=== PATIENT | female | born 1995 | race Caucasian/White ===

== ENCOUNTER 2019-04-27 00:57 | Emergency (ER) | payer OTHER ==
[2019-04-27 01:28] VITALS: BP 114/88; PULSE 99; O2SAT 98
--- NOTE | 2019-04-27 01:29 | ERPHSYRPT ---
- History of Present Illness Time Seen by Provider: 04/27/19 01:24 Source: patient Exam Limitations: no limitations Physician History: This is a 23-year-old white female who states that she has a history of depression she is brought by the [employer] with complaint that the patient was [place] she apparently pulled into a closed store on interview with please she states that she was smoking marijuana and took a Xanax. Patient is brought here for intermediate clearance. She states that she is not having any medical problems other that she's had allergies. She states she is not drinking tonight she does state that she took a 1 mg Xanax tablet around 4:00 in that she smoked marijuana at the same time (4:00 PM) Patient denies any other complaints. Patient denies suicidal or homicidal ideation. Past medical history includes depression. Patient states last period was in February however she is is on control pills and has irregular periods. Timing/Duration: today Severity: moderate Modifying Factors: Improves With: other (admits to taking Xanax 1 mg at 4 PM and smoking marijuana) Associated Symptoms: No nausea, No vomiting, No abdominal pain, No shortness of breath, No heartburn, No diaphoresis, No cough, No chills, No chest pain, No fever, No headaches, No loss of appetite, No malaise, No rash, No syncope, No seizure, No weakness Allergies/Adverse Reactions: No Known Drug Allergies Allergy (Unverified 04/27/19 01:06) Home Medications: Norgestimate-Ethinyl Estradiol [Sprintec 28 Day Tablet] 1 tab PO DAILY 04/27/19 [History] Sertraline HCl [Zoloft] 100 mg PO DAILY 04/27/19 [History] Trazodone HCl 150 mg PO HS 04/27/19 [History] - Review of Systems Constitutional: No Fever, No Chills Eyes: No Symptoms Ears, Nose, & Throat: Nose Congestion, Nose Discharge, No Ear Pain, No Ear Discharge, No Hearing Changes, No Tinnitus, No Nose Pain, No Sinus Drainage, No Epistaxis, No Mouth Pain, No Mouth Swelling, No Loose Teeth, No Throat Pain, No Throat Swelling, No Hoarse, No Painful Swallowing, No Snoring, No Stridor Respiratory: No Cough, No Dyspnea Cardiac: No Chest Pain, No Edema, No Syncope Abdominal/Gastrointestinal: No Abdominal Pain, No Nausea, No Vomiting, No Diarrhea Genitourinary Symptoms: No Dysuria Musculoskeletal: No Back Pain, No Neck Pain Skin: No Rash Neurological: No Dizziness, No Focal Weakness, No Sensory Changes Psychological: Other (admits to taking Xanax 1 mg and smoking marijuana at 4 PM) , No Suicidal Ideations, No Homicidal Ideations Endocrine: No Symptoms All Other Systems: Reviewed and Negative - Past Medical History Pertinent Past Medical History: Yes Psycho-Social History: Depression - Physical Exam General Appearance: no apparent distress, alert Eye Exam: PERRL/EOMI, eyes nml inspection Ears, Nose, Throat Exam: normal ENT inspection, TMs normal, pharynx normal, moist mucous membranes Neck Exam: normal inspection, non-tender, supple, full range of motion Respiratory Exam: normal breath sounds, lungs clear, No respiratory distress Cardiovascular Exam: regular rate/rhythm, normal heart sounds, normal peripheral pulses, capillary refill <2 sec Gastrointestinal/Abdomen Exam: soft, normal bowel sounds, No tenderness, No mass Back Exam: normal inspection, normal range of motion, No CVA tenderness, No vertebral tenderness Extremity Exam: normal inspection, normal range of motion, pelvis stable Neurologic Exam: alert, oriented x 3, cooperative, anesthesiologist and critical care II-XII nml as tested, normal mood/affect, nml cerebellar function, nml station & gait, sensation nml, No motor deficits Skin Exam: normal color, warm, dry, No rash Lymphatic Exam: No adenopathy SpO2 Interpretation: normal (98%) - Course Nursing assessment & vital signs reviewed: Yes - Progress Progress: improved Progress Note: 04/27/19 01:28 23-year-old white female with history of depression arrives with complaints that she is here for intermediate clearance. Patient denies any complaints other than the runny nose she does admit to taking one Xanax tablet at approximately 4 PM this was a 1 mg tablet she also states that she was smoking marijuana. She states that she did not have any alcohol tonight she denies any complaints she has not had any pain. I have informed the patient that I normally do an EKG sometimes a drug screen sometimes a blood alcohol and was considering giving an Accu-Chek on this patient. She has refused any testing other than physical examination and vital signs. Patient is alert she is oriented to herself she is also oriented to [facility] ER also oriented to April 26, 2019. Will go ahead and discharge patient to intermediate patient is cleared for intermediate. 04/27/19 01:31 Patient's vitals are reviewed and she is stable. - Departure Departure Disposition: Retirement/Detention Clinical Impression: Retirement clearance, stated benzodiazepine use, Stated marijuana use Condition: Fair Critical Care Time: No Additional Instructions: Proceed to intermediate. No driving. Followup with your family doctor or intermediate physician. Return for acute distress or for severe symptoms.
== END 2019-04-27 01:35 | disposition home or self-care (01) ==
LOC: ED 00:57
DX: F15.90 Other stimulant use, unspecified, uncomplicated (principal); F12.90 Cannabis use, unspecified, uncomplicated; Z02.89 Encounter for other administrative examinations
CPT/HCPCS: 99283

== ENCOUNTER 2019-05-14 09:30 | Observation (INO) | payer OTHER ==
[2019-05-14] MEDS ORDERED: Sodium Chloride 0.9% 1000 ML 1,000 ML IV STA ×2 (09:32→11:58)
[2019-05-14] MEDS ORDERED: Sodium Chloride 0.9% 1000 ML 1,000 ML ONE ×3 (09:42→11:54)
--- NOTE | 2019-05-14 09:48 | ERPHSYRPT ---
- History of Present Illness Time Seen by Provider: 05/14/19 09:43 Source: patient, EMS Exam Limitations: no limitations Physician History: 23-year-old white female brought by medics with complaint of a possible overdose patient states she used heroin and took some Xanax Patient was found by medics unresponsive appear to be somewhat blue she was given Narcan. Patient currently is alert she is oriented x3 she denies delivered attempt to harm herself. Past medical history includes depression , patient states she has a history of substance abuse which she uses heroin Past surgical history is negative. Social history patient states she has a history of heroin abuse she denies tobacco or alcohol use Timing/Duration: today (77 AM) Severity: moderate Associated Symptoms: other (decreased level of consciousness, possible heroin overdose), No nausea, No vomiting, No abdominal pain, No shortness of breath, No heartburn, No diaphoresis, No cough, No chills, No chest pain, No fever, No headaches, No loss of appetite, No malaise, No rash, No syncope, No seizure, No weakness Allergies/Adverse Reactions: No Known Drug Allergies Allergy (Unverified 04/27/19 01:06) Home Medications: Sertraline HCl [Zoloft] 100 mg PO DAILY 04/27/19 [History] Trazodone HCl 150 mg PO HS 04/27/19 [History] Hx Influenza Vaccination/Date Given: No Hx Pneumococcal Vaccination/Date Given: No - Review of Systems Constitutional: No Fever, No Chills Eyes: No Symptoms Ears, Nose, & Throat: No Symptoms Respiratory: No Cough, No Dyspnea Cardiac: No Chest Pain, No Edema, No Syncope Abdominal/Gastrointestinal: No Abdominal Pain, No Nausea, No Vomiting, No Diarrhea Genitourinary Symptoms: No Dysuria Musculoskeletal: No Back Pain, No Neck Pain Skin: No Rash Neurological: Other (decreased level of consciousness per medics) Psychological: Other (possible heroin overdose breathing 4 times decreased level of consciousness on medics arrival) All Other Systems: Reviewed and Negative - Past Medical History Pertinent Past Medical History: Yes Neurological History: No Pertinent History ENT History: No Pertinent History Cardiac History: No Pertinent History Respiratory History: No Pertinent History Endocrine Medical History: No Pertinent History Musculoskeletal History: No Pertinent History GI Medical History: No Pertinent History History: No Pertinent History Psycho-Social History: Depression, Other (heroin abuse) Female Reproductive Disorders: No Pertinent History - Past Surgical History Past Surgical History: No Neuro Surgical History: No Pertinent History Cardiac: No Pertinent History Respiratory: No Pertinent History Gastrointestinal: No Pertinent History Genitourinary: No Pertinent History Musculoskeletal: No Pertinent History Female Surgical History: No Pertinent History - Social History Smoking Status: Never smoker Exposure to second hand smoke: No Drug Use: marijuana Patient Lives Alone: No - Nursing Vital Signs Nursing Vital Signs: Initial Vital Signs Temperature 98.4 F 05/14/19 09:31 Pulse Rate 130 H 05/14/19 09:31 Respiratory Rate 22 05/14/19 09:31 Blood Pressure 119/88 05/14/19 09:31 O2 Sat by Pulse Oximetry 94 L 05/14/19 09:31 Pain Scale Pain Intensity 0 - Physical Exam General Appearance: mild distress, alert Eye Exam: PERRL/EOMI, eyes nml inspection, other (pupils somewhat dilated reactive) Ears, Nose, Throat Exam: normal ENT inspection, TMs normal, pharynx normal, moist mucous membranes Neck Exam: normal inspection, non-tender, supple, full range of motion Respiratory Exam: normal breath sounds, lungs clear, No respiratory distress Cardiovascular Exam: regular rate/rhythm, normal heart sounds, normal peripheral pulses, capillary refill <2 sec Gastrointestinal/Abdomen Exam: soft, normal bowel sounds, No tenderness, No mass Back Exam: normal inspection, normal range of motion, No CVA tenderness, No vertebral tenderness Extremity Exam: normal inspection, normal range of motion, pelvis stable Neurologic Exam: alert, oriented x 3, director television news II-XII nml as tested Skin Exam: normal color, warm, dry, No rash SpO2 Interpretation: borderline oxygenation (88%) - Course Nursing assessment & vital signs reviewed: Yes EKG Interpreted by Me: RATE (101 bpm), Sinus Tach, NORMAL AXIS, Other (EKG: Sinus tachycardia, 1 or 1 beats per minute, normal axis, no acute ST or T wave changes noted essentially normal EKG) - Radiology Exams Chest X-ray Interpretation: Discussed w/ radiologist (chest x-ray: Right upper lobe pneumonia) Ordered Tests: Active Orders 24 hr Category Date Time Status EKG-ER Only STAT Care 05/14/19 09:32 Active IV Insertion STAT Care 05/14/19 09:32 Active Pulse Oximetry (ED) STAT Care 05/14/19 09:32 Active CHEST 1 VIEW (PORTABLE) Stat Exams 05/14/19 10:55 Completed ACETAMINOPHEN Stat Lab 05/14/19 10:02 Completed BLOOD CULTURE Stat Lab 05/14/19 11:14 Ordered CBC W DIFF Stat Lab 05/14/19 10:02 Completed CMP Stat Lab 05/14/19 10:02 Completed CULTURE,SPUTUM Stat Lab 05/14/19 11:36 Uncollected ETHYL ALCOHOL Stat Lab 05/14/19 10:02 Completed HCG QUALITATIVE,SERUM Stat Lab 05/14/19 10:02 Completed SALICYLATE Stat Lab 05/14/19 10:02 Completed UA W/RFX UR CULTURE Stat Lab 05/14/19 10:02 Completed Urine Triage Profile Stat Lab 05/14/19 10:02 Completed VENOUS BLOOD GAS Stat Lab 05/14/19 09:32 Completed Respiratory Therapy Assessment DAILY RT 05/14/19 11:10 Completed Medication Summary Generic Name Dose Route Start Last Admin Trade Name Freq PRN Reason Stop Dose Admin Ceftriaxone Sodium/Dextrose 1 g in 50 mls @ 100 mls/hr 05/14/19 11:36 Rocephin 1 Gm-D5w 50 Ml Bag IV 05/14/19 12:05 STAT STA Sodium Chloride 1,000 mls @ 100 mls/hr 05/14/19 11:45 Sodium Chloride 0.9% 1000 Ml IV 06/13/19 11:44 .Q10H DEVIN Discontinued Medications Generic Name Dose Route Start Last Admin Trade Name Freq PRN Reason Stop Dose Admin Albuterol Sulfate 2.5 mg 05/14/19 10:55 05/14/19 11:09 Proventil 2.5 Mg/3 Ml Neb IH 05/14/19 10:56 2.5 mg STAT ONE Administration Albuterol Sulfate Confirm 05/14/19 10:58 Proventil 2.5 Mg/3 Ml Neb Administered 05/14/19 10:59 Dose 2.5 mg IH .STK-MED ONE Sodium Chloride 1,000 mls @ 999 mls/hr 05/14/19 09:32 05/14/19 10:53 Sodium Chloride 0.9% 1000 Ml IV 05/14/19 10:32 Infused .Q1H1M STA Infusion Sodium Chloride Confirm 05/14/19 09:42 Sodium Chloride 0.9% 1000 Ml Administered 05/14/19 09:43 Dose 1,000 mls @ ud .ROUTE [facility] ONE Ceftriaxone Sodium/Dextrose Confirm 05/14/19 11:44 Rocephin 1 Gm-D5w 50 Ml Bag Administered 05/14/19 11:45 Dose 1 g in 50 mls @ IV .STK-MED ONE Lab/Rad Data: Laboratory Result Diagrams 05/14/19 10:02 05/14/19 10:02 Laboratory Results 05/14/19 05/14/19 05/14/19 Range/Units 10:02 10:02 10:02 WBC (4.0-10.5) K/mm3 RBC (4.1-5.4) M/mm3 Hgb (12.0-16.0) gm/dl Hct (35-47) % MCV (78-100) fl MCH (26-32) pg MCHC (32-36) g/dl RDW (11.5-14.0) % Plt Count (150-450) K/mm3 MPV (6-9.5) fl Gran % (36.0-66.0) % Eos # (Auto) (0-0.5) Absolute Lymphs (auto) (1.0-4.6) Absolute Monos (auto) (0.0-1.3) Lymphocytes % (24.0-44.0) % Monocytes % (0.0-12.0) % Eosinophils % (0.00-5.0) % Basophils % (0.0-0.4) % Absolute Granulocytes (1.4-6.9) Basophils # (0-0.4) pO2/FiO2 Ratio % VBG pH (7.32-7.42) VBG pCO2 at Pat Temp (42-55) mm/Hg VBG pO2 at Pat Temp (25-40) mm/Hg VBG HCO3 (22-28) meq/L VBG O2 Sat (Chaim) (95-100) VBG Base Excess (-2.0-2.0) VBG Hemoglobin VBG Carboxyhemoglobin (0.0-6.9) % T HGB POC Potassium (3.5-5.1) Sodium (137-145) mmol/L Potassium (3.5-5.1) mmol/L Chloride (98-107) mmol/L Carbon Dioxide (22-30) mmol/L Anion Gap (5-15) MEQ/L BUN (7-17) mg/dL Creatinine (0.52-1.04) mg/dL Estimated GFR ML/MIN Glucose (74-106) mg/dL Calcium (8.4-10.2) mg/dL Total Bilirubin (0.2-1.3) mg/dL AST (14-36) U/L ALT (0-35) U/L Alkaline Phosphatase (38-126) U/L Serum Total Protein (6.3-8.2) g/dL Albumin (3.5-5.0) g/dL Serum , Qual NEGATIVE (Negative) Urine Color YELLOW (YELLOW) Urine Appearance CLEAR (CLEAR) Urine pH 5.0 (5-6) Ur Specific [place] 1.019 (1.005-1.025) Urine Protein NEGATIVE (Negative) Urine Ketones NEGATIVE (NEGATIVE) Urine Blood NEGATIVE (0-5) Prasanth/ul Urine Nitrite NEGATIVE (NEGATIVE) Urine Bilirubin NEGATIVE (NEGATIVE) Urine Urobilinogen NEGATIVE (0-1) mg/dL Ur Leukocyte Esterase NEGATIVE (NEGATIVE) Urine WBC (Auto) 3-5 (0-5) /HPF Urine RBC (Auto) NONE (0-2) /HPF U Hyaline Cast (Auto) 26-50 (0-2) /LPF U Epithel Cells (Auto) NONE (FEW) /HPF Urine Bacteria (Auto) RARE (NEGATIVE) /HPF Urine Mucus (Auto) SLIGHT (NEGATIVE) /HPF Urine Culture Reflexed NO (NO) Urine Glucose NEGATIVE (NEGATIVE) mg/dL Salicylates (2-20) mg/dL Urine Opiates Level POSITIVE (NEGATIVE) Ur Methadone NEGATIVE (NEGATIVE) Acetaminophen (10-30) ug/ml Urine Barbiturates NEGATIVE (NEGATIVE) Ur Phencyclidine (PCP) NEGATIVE (NEGATIVE) Urine Amphetamine NEGATIVE (NEGATIVE) U Benzodiazepine Level POSITIVE (NEGATIVE) Urine Cocaine NEGATIVE (NEGATIVE) Urine Marijuana (THC) POSITIVE (NEGATIVE) Ethyl Alcohol (0-10) mg/dL 05/14/19 05/14/19 05/14/19 Range/Units 10:02 10:02 09:32 WBC 18.1 H (4.0-10.5) K/mm3 RBC 4.61 (4.1-5.4) M/mm3 Hgb 13.5 (12.0-16.0) gm/dl Hct 41.3 (35-47) % MCV 89.6 (78-100) fl MCH 29.3 (26-32) pg MCHC 32.7 (32-36) g/dl RDW 14.4 H (11.5-14.0) % Plt Count 357 (150-450) K/mm3 MPV 10.0 H (6-9.5) fl Gran % 87.4 H (36.0-66.0) % Eos # (Auto) 0.07 (0-0.5) Absolute Lymphs (auto) 1.16 (1.0-4.6) Absolute Monos (auto) 1.03 (0.0-1.3) Lymphocytes % 6.4 L (24.0-44.0) % Monocytes % 5.7 (0.0-12.0) % Eosinophils % 0.4 (0.00-5.0) % Basophils % 0.1 (0.0-0.4) % Absolute Granulocytes 15.85 H (1.4-6.9) Basophils # 0.01 (0-0.4) pO2/FiO2 Ratio 21.0 % VBG pH 7.24 L* (7.32-7.42) VBG pCO2 at Pat Temp 68 H* (42-55) mm/Hg VBG pO2 at Pat Temp 14 L (25-40) mm/Hg VBG HCO3 29.1 H* (22-28) meq/L VBG O2 Sat (Chaim) 24.6 L (95-100) VBG Base Excess -0.1 (-2.0-2.0) VBG Hemoglobin 13.9 VBG Carboxyhemoglobin 3.3 (0.0-6.9) % T HGB POC Potassium 4.7 (3.5-5.1) Sodium 139 (137-145) mmol/L Potassium 4.3 (3.5-5.1) mmol/L Chloride 100 (98-107) mmol/L Carbon Dioxide 26 (22-30) mmol/L Anion Gap 16.7 H (5-15) MEQ/L BUN 15 (7-17) mg/dL Creatinine 0.87 (0.52-1.04) mg/dL Estimated GFR > 60.0 ML/MIN Glucose 153 H (74-106) mg/dL Calcium 9.0 (8.4-10.2) mg/dL Total Bilirubin 0.30 (0.2-1.3) mg/dL AST 20 (14-36) U/L ALT 17 (0-35) U/L Alkaline Phosphatase 83 (38-126) U/L Serum Total Protein 7.6 (6.3-8.2) g/dL Albumin 4.1 (3.5-5.0) g/dL Serum , Qual (Negative) Urine Color (YELLOW) Urine Appearance (CLEAR) Urine pH (5-6) Ur Specific [place] (1.005-1.025) Urine Protein (Negative) Urine Ketones (NEGATIVE) Urine Blood (0-5) Prasanth/ul Urine Nitrite (NEGATIVE) Urine Bilirubin (NEGATIVE) Urine Urobilinogen (0-1) mg/dL Ur Leukocyte Esterase (NEGATIVE) Urine WBC (Auto) (0-5) /HPF Urine RBC (Auto) (0-2) /HPF U Hyaline Cast (Auto) (0-2) /LPF U Epithel Cells (Auto) (FEW) /HPF Urine Bacteria (Auto) (NEGATIVE) /HPF Urine Mucus (Auto) (NEGATIVE) /HPF Urine Culture Reflexed (NO) Urine Glucose (NEGATIVE) mg/dL Salicylates < 1.0 L (2-20) mg/dL Urine Opiates Level (NEGATIVE) Ur Methadone (NEGATIVE) Acetaminophen < 10 L (10-30) ug/ml Urine Barbiturates (NEGATIVE) Ur Phencyclidine (PCP) (NEGATIVE) Urine Amphetamine (NEGATIVE) U Benzodiazepine Level (NEGATIVE) Urine Cocaine (NEGATIVE) Urine Marijuana (THC) (NEGATIVE) Ethyl Alcohol < 10 (0-10) mg/dL - Progress Progress: improved Progress Note: 05/14/19 11:47 This is a 43-year-old white female brought by the medics patient with apparent heroin overdose. Patient was noted by medics be unresponsive breathing 4 times a minute and looking somewhat blue She was given Narcan 2 mg IV on arrival patient is a little somnolent but answering questions well. Patient was noted to have a pulse ox of 88 on arrival blood pressure was stable at 97/71 patient was given oxygen 3 L and sats were around 97% lungs were clear patient was able to answer questions she states that she has a long history of heroin abuse she states she took Xanax and heroin at about 7:30 this morning. Patient with an EKG remarkable for sinus tachycardia 101 beats per minute normal axis no acute ST or T wave changes patient with a chest x-ray which shows focal airspace infiltrate with central right upper lung field insistent with pneumonia. Patient with white count 18.1 hemoglobin 13.5 hematocrit 41.3 platelets were 357 Patient with venous gases pH 7.24 PCO2 68 chemistry sodium 139 potassium 4.3 chloride 100 bicarbonate 26 BUN 15 creatinine 0.87 glucose 153 hCG was negative urinalysis specific gravity 1.019 pH 3.03-5 white cells per high-power field urine drug screen positive for opiates positive for benzodiazepines positive for THC alcohol was less than 10 salicylate less than 1.0 acetaminophen level less than 10 Patient was given normal saline 1 L IV she was given an Albuterol treatment Blood cultures were ordered on the patient and Rocephin has been ordered for the patient 1 g IV as soon his chest x-rays results were noted. Patient currently is alert she is talking blood pressure is stable. I discussed the patient's case with Dr. Chang who is district home economics agent for the hospital will place patient on ICU. Diagnosis heroin overdose, pneumonia. Plan Will place patient on ICU telemetry continue to provide IV normal saline Will provide IV Rocephin as well as Zithromax albuterol treatments every 4 hours as needed. - Departure Departure Disposition: Observation Clinical Impression: Heroin overdose Qualifiers: Encounter type: initial encounter Injury intent: accidental or unintentional Qualified Code(s): T40.1X1A - Poisoning by heroin, accidental (unintentional), initial encounter Pneumonia Qualifiers: Pneumonia type: aspiration pneumonia Aspiration pneumonia type: unspecified Laterality: right Lung location: upper lobe of lung Qualified Code(s): J69.0 - Pneumonitis due to inhalation of food and vomit Condition: Fair Critical Care Time: No Referrals: DOCTOR,NO FAMILY [Primary Care Provider] -
[2019-05-14 10:01] LABS: VBG BASE EXCESS -0.1 (-2.0-2.0); VBG CARBOXYHEMOGLOBIN 3.3 % T HGB (0.0-6.9); VBG HCO3- 29.1 meq/L (22-28); VBG HEMOGLOBIN 13.9; VBG O2 SATURATION 24.6 (95-100); VBG POTASSIUM 4.7 (3.5-5.1)
[2019-05-14 10:02] LABS: VBG pH 7.24 (7.32-7.42)
[2019-05-14 10:05] LABS: BASOPHIL % 0.1 % (0.0-0.4); Basophil (Absolute #) 0.01 (0-0.4); Eosinophil % 0.4 % (0.00-5.0); Eosinophil (Absolute #) 0.07 (0-0.5); Granulocyte Absolute (ANC) 15.85 (1.4-6.9); Granulocytes % 87.4 % (36.0-66.0); Hematocrit 41.3 % (35-47); Hemoglobin 13.5 gm/dl (12.0-16.0); Lymphocyte (Absolute #) 1.16 (1.0-4.6); Lymphocytes % 6.4 % (24.0-44.0); Mean Cell Volume 89.6 fl (78-100); Mean Corpuscular Hemoglobin 29.3 pg (26-32); Mean Corpuscular Hgb Concent. 32.7 g/dl (32-36); Monocyte (Absolute #) 1.03 (0.0-1.3); Monocytes % 5.7 % (0.0-12.0); Platelet Count 357 K/mm3 (150-450); Red Blood Count 4.61 M/mm3 (4.1-5.4); Red Cell Distribution Width 14.4 % (11.5-14.0); White Blood Count 18.1 K/mm3 (4.0-10.5)
[2019-05-14 10:09] LABS: Appearance CLEAR (CLEAR); Bacteria RARE /HPF (NEGATIVE); Bilirubin NEGATIVE (NEGATIVE); Blood NEGATIVE Ery/ul (0-5); Glucose NEGATIVE (NEGATIVE); Hyaline Casts 26-50 /LPF (0-2); Ketones NEGATIVE (NEGATIVE); Leukocyte Esterase NEGATIVE (NEGATIVE); Mucus SLIGHT /HPF (NEGATIVE); Nitrite NEGATIVE (NEGATIVE); Protein,Urine Dip NEGATIVE (Negative); Specific Gravity 1.019 (1.005-1.025); Urobilinogen NEGATIVE mg/dL (0-1)
[2019-05-14 10:17] LABS: ALBUMIN 4.1 g/dL (3.5-5.0); ALKALINE PHOSPHATASE 83 U/L (38-126); ANION GAP 16.7 MEQ/L (5-15); BLOOD UREA NITROGEN 15 mg/dL (7-17); CHLORIDE 100 mmol/L (98-107); Carbon Dioxide 26 mmol/L (22-30); Creatinine 1 0.87 mg/dL (0.52-1.04); Glucose 153 mg/dL (74-106); Potassium 4.3 mmol/L (3.5-5.1); SGOT/AST 20 U/L (14-36); SGPT/ALT 17 U/L (0-35); SODIUM 139 mmol/L (137-145); Total Protein 7.6 g/dL (6.3-8.2)
[2019-05-14 10:20] LABS: ACETAMINOPHEN < 10 ug/ml (10-30); ETHYL ALCOHOL < 10 mg/dL (0-10); SALICYLATE < 1.0 mg/dL (2-20)
[2019-05-14 10:27] LABS: Amphetamine,Urine NEGATIVE (NEGATIVE); Barbiturate,Urine NEGATIVE (NEGATIVE); Benzodiazepine,Urine POSITIVE (NEGATIVE); Cocaine,Urine NEGATIVE (NEGATIVE); Methadone,Urine NEGATIVE (NEGATIVE); Opiate,Urine POSITIVE (NEGATIVE); PCP,Urine NEGATIVE (NEGATIVE); THC,Urine POSITIVE (NEGATIVE)
[2019-05-14] MEDS ORDERED: PROVENTIL 2.5 MG/3 ML NEB IH ONE ×2 (10:55→10:58)
[2019-05-14] MEDS ORDERED: ROCEPHIN 1 Gm-D5w 50 ml Bag** 1 G/50 ML IVPB IV STA (11:36)
--- NOTE | 2019-05-14 11:42 | XRAY ---
Exam: AP upright portable chest film from 05/14/2019. Comparison: None. Indication: 23-year-old female with overdose. Findings: The heart size is normal. EKG leads are seen in place. I see focal airspace infiltrate within the central right upper lung field. This is consistent with pneumonia. Consider aspiration. The remainder of the lung lópez appears clear. No vascular congestion, pneumothorax, or pleural fluid is seen. No acute osseous process is seen. Impression: 1. Focal airspace infiltrate within central right upper lung field consistent with pneumonia. I called this report to the emergency department physician, Dr. Shoemaker, at 11:36 AM on 05/14/2019. 2. No other acute cardiopulmonary disease is seen.
[2019-05-14] MEDS ORDERED: ROCEPHIN 1 Gm-D5w 50 ml Bag** 1 G/50 ML IVPB IV ONE (11:44)
[2019-05-14] MEDS ORDERED: Sodium Chloride 0.9% 1000 ML 1,000 ML IV SCH ×2 (11:45→12:20)
[2019-05-14] MEDS ORDERED: PROVENTIL 2.5 MG/3 ML NEB IH PRN (12:20)
[2019-05-14] MEDS ORDERED: Zithromax 500 MG/ 250 ML NaCl Premix 500 MG/250 ML IVPB IV SCH (12:30)
[2019-05-14] MEDS: TYLENOL EXTRA STRENGTH 500 MG PO PRN ×2 (14:11→20:00)
[2019-05-14] MEDS ORDERED: MEDICATION INTERVENTION MC SCH (15:45)
[2019-05-14] MEDS ORDERED: ZOLOFT 50 MG TABLET ONE (19:58)
[2019-05-14] MEDS ORDERED: Desyrel 150 MG PO SCH (22:00)
[2019-05-14] MEDS ORDERED: NON-FORMULARY ITEM (Trazodone Hcl [Trazodone Hcl] 150 MG) PO SCH (22:00)
[2019-05-14 22:14] LABS: CHLAMYDIA URINE NEGATIVE (NEGATIVE); GC URINE NEGATIVE (NEGATIVE)
[2019-05-15 05:25] LABS: BASOPHIL % 0.2 % (0.0-0.4); Basophil (Absolute #) 0.02 (0-0.4); Eosinophil % 3.2 % (0.00-5.0); Eosinophil (Absolute #) 0.29 (0-0.5); Granulocyte Absolute (ANC) 6.37 (1.4-6.9); Granulocytes % 70.3 % (36.0-66.0); Hematocrit 35.7 % (35-47); Hemoglobin 11.5 gm/dl (12.0-16.0); Lymphocytes % 18.7 % (24.0-44.0); Mean Cell Volume 90.4 fl (78-100); Mean Corpuscular Hemoglobin 29.1 pg (26-32); Mean Corpuscular Hgb Concent. 32.2 g/dl (32-36); Monocyte (Absolute #) 0.69 (0.0-1.3); Monocytes % 7.6 % (0.0-12.0); Platelet Count 308 K/mm3 (150-450); Red Blood Count 3.95 M/mm3 (4.1-5.4); Red Cell Distribution Width 14.2 % (11.5-14.0); White Blood Count 9.1 K/mm3 (4.0-10.5)
[2019-05-15 06:31] LABS: ALBUMIN 3.1 g/dL (3.5-5.0); ALKALINE PHOSPHATASE 58 U/L (38-126); ANION GAP 8.6 MEQ/L (5-15); BLOOD UREA NITROGEN 9 mg/dL (7-17); CHLORIDE 110 mmol/L (98-107); Calcium 8.3 mg/dL (8.4-10.2); Carbon Dioxide 27 mmol/L (22-30); Creatinine 1 0.65 mg/dL (0.52-1.04); Glucose 96 mg/dL (74-106); Potassium 4.3 mmol/L (3.5-5.1); SGOT/AST 17 U/L (14-36); SGPT/ALT 13 U/L (0-35); SODIUM 141 mmol/L (137-145)
--- NOTE | 2019-05-15 08:28 | PCM.HP ---
History of Present Illness - Chief Complaint Chief Complaint: found unresponsive at home History of Present Illness: 23-year-old white female brought by medics with complaint of a possible overdose patient states she used heroin and took some Xanax Patient was found by medics unresponsive appear to be somewhat blue she was given Narcan. Patient currently is alert she is oriented x3 she denies delivered attempt to harm herself. Past medical history includes depression , patient states she has a history of substance abuse which she uses heroin regularly - Review of Systems Constitutional: No Fever, No Chills Eyes: No Symptoms Ears, Nose, & Throat: No Symptoms Respiratory: No Cough, No Short Of Breath Cardiac: No Chest Pain, No Edema, No Syncope Abdominal/Gastrointestinal: No Abdominal Pain, No Nausea, No Vomiting, No Diarrhea Genitourinary Symptoms: No Dysuria Musculoskeletal: No Back Pain, No Neck Pain Skin: No Rash Neurological: No Dizziness, No Focal Weakness, No Sensory Changes Psychological: No Symptoms Endocrine: No Symptoms Hematologic/Lymphatic: No Symptoms Immunological/Allergic: No Symptoms Medications & Allergies Home Medications: Home Medication List Sertraline HCl [Zoloft] 100 mg PO DAILY 04/27/19 [History Confirmed 05/14/19] Trazodone HCl 150 mg PO HS 04/27/19 [History Confirmed 05/14/19] Norgestimate-Ethinyl Estradiol [Sprintec 28 Day Tablet] 1 tab PO DAILY 05/14/19 [History Confirmed 05/14/19] Allergies/Adverse Reactions: Allergies Allergy/AdvReac Type Severity Reaction Status Date / Time No Known Drug Allergies Allergy Verified 05/14/19 12:30 - Past Medical History Past Medical History: Yes Neurological History: No Pertinent History ENT History: No Pertinent History Cardiac History: No Pertinent History Respiratory History: No Pertinent History Endocrine Medical History: No Pertinent History Musculoskelatal History: No Pertinent History GI Medical History: No Pertinent History History: No Pertinent History Pyscho-Social History: Depression, Other Reproductive Disorders: No Pertinent History Comment: herion addict - Female History Hx Last Menstrual Period: 03/02/19 Are you now?: No - Past Surgical History Past Surgical History: No Neuro Surgical History: No Pertinent History Cardiac History: No Pertinent History Respiratory Surgery: No Pertinent History GI Surgical History: No Pertinent History Genitourinary Surgical Hx: No Pertinent History Musculskeletal Surgical Hx: No Pertinent History Female Surgical History: No Pertinent History - Social History Smoking Status: Never smoker Exposure to second hand smoke: Yes Alcohol: Occasionally Drug Use: marijuana, heroin, other - Physical Exam Vital Signs: Vital Signs - 24 hr Temp Pulse Resp BP Pulse Ox 05/15/19 08:07 95 05/15/19 07:27 97.6 F 71 18 89/50 97 05/15/19 04:29 98.3 F 65 16 82/41 98 05/15/19 04:00 65 05/15/19 00:16 97.7 F 82 16 106/59 96 05/15/19 00:01 82 05/14/19 20:00 98.4 F 88 15 113/72 96 05/14/19 16:00 92 H 18 122/67 95 05/14/19 14:19 80 20 95 05/14/19 12:52 97.4 F 102 H 16 111/71 93 L 05/14/19 12:20 91 L 05/14/19 12:04 97.8 F 112 H 28 H 108/81 98 05/14/19 11:21 97.8 F 97 H 15 108/61 98 05/14/19 11:18 95 H 16 99 05/14/19 10:34 98.4 F 99 H 14 97/71 97 05/14/19 09:32 88 L 05/14/19 09:31 98.4 F 130 H 22 119/88 94 L Oxygen-Last 24 hours O2 Percentage 3 Liters = 32% O2 Percentage 3 Liters = 32% O2 Percentage 3 Liters = 32% General Appearance: no apparent distress, alert Neurologic Exam: alert, oriented x 3, cooperative, normal mood/affect, nml cerebellar function, nml station & gait, sensation nml, No motor deficits Eye Exam: PERRL/EOMI, eyes nml inspection Ears, Nose, Throat Exam: normal ENT inspection, TMs normal, pharynx normal, moist mucous membranes Neck Exam: normal inspection, non-tender, supple, full range of motion Respiratory Exam: normal breath sounds, lungs clear, No respiratory distress Cardiovascular Exam: regular rate/rhythm, normal heart sounds, normal peripheral pulses Gastrointestinal/Abdomen Exam: soft, normal bowel sounds, No tenderness, No mass Back Exam: normal inspection, normal range of motion, No CVA tenderness, No vertebral tenderness Extremity Exam: normal inspection, normal range of motion, pelvis stable Skin Exam: normal color, warm, dry, No rash Lymphatic Exam: No adenopathy Results - Labs Lab/Micro Results: Lab Results-Last 24 Hours 05/14/19 05/14/19 05/14/19 Range/Units 09:32 10:02 10:02 WBC 18.1 H (4.0-10.5) K/mm3 RBC 4.61 (4.1-5.4) M/mm3 Hgb 13.5 (12.0-16.0) gm/dl Hct 41.3 (35-47) % MCV 89.6 (78-100) fl MCH 29.3 (26-32) pg MCHC 32.7 (32-36) g/dl RDW 14.4 H (11.5-14.0) % Plt Count 357 (150-450) K/mm3 MPV 10.0 H (6-9.5) fl Gran % 87.4 H (36.0-66.0) % Eos # (Auto) 0.07 (0-0.5) Absolute Lymphs (auto) 1.16 (1.0-4.6) Absolute Monos (auto) 1.03 (0.0-1.3) Lymphocytes % 6.4 L (24.0-44.0) % Monocytes % 5.7 (0.0-12.0) % Eosinophils % 0.4 (0.00-5.0) % Basophils % 0.1 (0.0-0.4) % Absolute Granulocytes 15.85 H (1.4-6.9) Basophils # 0.01 (0-0.4) pO2/FiO2 Ratio 21.0 % VBG pH 7.24 L* (7.32-7.42) VBG pCO2 at Pat Temp 68 H* (42-55) mm/Hg VBG pO2 at Pat Temp 14 L (25-40) mm/Hg VBG HCO3 29.1 H* (22-28) meq/L VBG O2 Sat (Chaim) 24.6 L (95-100) VBG Base Excess -0.1 (-2.0-2.0) VBG Hemoglobin 13.9 VBG Carboxyhemoglobin 3.3 (0.0-6.9) % T HGB POC Potassium 4.7 (3.5-5.1) Sodium 139 (137-145) mmol/L Potassium 4.3 (3.5-5.1) mmol/L Chloride 100 (98-107) mmol/L Carbon Dioxide 26 (22-30) mmol/L Anion Gap 16.7 H (5-15) MEQ/L BUN 15 (7-17) mg/dL Creatinine 0.87 (0.52-1.04) mg/dL Estimated GFR > 60.0 ML/MIN Glucose 153 H (74-106) mg/dL Calcium 9.0 (8.4-10.2) mg/dL Total Bilirubin 0.30 (0.2-1.3) mg/dL AST 20 (14-36) U/L ALT 17 (0-35) U/L Alkaline Phosphatase 83 (38-126) U/L Serum Total Protein 7.6 (6.3-8.2) g/dL Albumin 4.1 (3.5-5.0) g/dL Serum , Qual (Negative) Urine Color (YELLOW) Urine Appearance (CLEAR) Urine pH (5-6) Ur Specific [place] (1.005-1.025) Urine Protein (Negative) Urine Ketones (NEGATIVE) Urine Blood (0-5) Prasanth/ul Urine Nitrite (NEGATIVE) Urine Bilirubin (NEGATIVE) Urine Urobilinogen (0-1) mg/dL Ur Leukocyte Esterase (NEGATIVE) Urine WBC (Auto) (0-5) /HPF Urine RBC (Auto) (0-2) /HPF U Hyaline Cast (Auto) (0-2) /LPF U Epithel Cells (Auto) (FEW) /HPF Urine Bacteria (Auto) (NEGATIVE) /HPF Urine Mucus (Auto) (NEGATIVE) /HPF Urine Culture Reflexed (NO) Urine Glucose (NEGATIVE) mg/dL Salicylates < 1.0 L (2-20) mg/dL Urine Opiates Level (NEGATIVE) Ur Methadone (NEGATIVE) Acetaminophen < 10 L (10-30) ug/ml Urine Barbiturates (NEGATIVE) Ur Phencyclidine (PCP) (NEGATIVE) Urine Amphetamine (NEGATIVE) U Benzodiazepine Level (NEGATIVE) Urine Cocaine (NEGATIVE) Urine Marijuana (THC) (NEGATIVE) Ethyl Alcohol < 10 (0-10) mg/dL RPR w/Rflx to Titer Ur Chlamydia DNA Probe (NEGATIVE) Urine GC DNA Probe (NEGATIVE) Hep Bs Antigen Hep Bs Antibody, Quant Hepatitis C Ab (EIA) HIV Ag/Ab Combo Qual HIV 1&2 Antibody Interp 05/14/19 05/14/19 05/14/19 Range/Units 10:02 10:02 10:02 WBC (4.0-10.5) K/mm3 RBC (4.1-5.4) M/mm3 Hgb (12.0-16.0) gm/dl Hct (35-47) % MCV (78-100) fl MCH (26-32) pg MCHC (32-36) g/dl RDW (11.5-14.0) % Plt Count (150-450) K/mm3 MPV (6-9.5) fl Gran % (36.0-66.0) % Eos # (Auto) (0-0.5) Absolute Lymphs (auto) (1.0-4.6) Absolute Monos (auto) (0.0-1.3) Lymphocytes % (24.0-44.0) % Monocytes % (0.0-12.0) % Eosinophils % (0.00-5.0) % Basophils % (0.0-0.4) % Absolute Granulocytes (1.4-6.9) Basophils # (0-0.4) pO2/FiO2 Ratio % VBG pH (7.32-7.42) VBG pCO2 at Pat Temp (42-55) mm/Hg VBG pO2 at Pat Temp (25-40) mm/Hg VBG HCO3 (22-28) meq/L VBG O2 Sat (Chaim) (95-100) VBG Base Excess (-2.0-2.0) VBG Hemoglobin VBG Carboxyhemoglobin (0.0-6.9) % T HGB POC Potassium (3.5-5.1) Sodium (137-145) mmol/L Potassium (3.5-5.1) mmol/L Chloride (98-107) mmol/L Carbon Dioxide (22-30) mmol/L Anion Gap (5-15) MEQ/L BUN (7-17) mg/dL Creatinine (0.52-1.04) mg/dL Estimated GFR ML/MIN Glucose (74-106) mg/dL Calcium (8.4-10.2) mg/dL Total Bilirubin (0.2-1.3) mg/dL AST (14-36) U/L ALT (0-35) U/L Alkaline Phosphatase (38-126) U/L Serum Total Protein (6.3-8.2) g/dL Albumin (3.5-5.0) g/dL Serum , Qual NEGATIVE (Negative) Urine Color YELLOW (YELLOW) Urine Appearance CLEAR (CLEAR) Urine pH 5.0 (5-6) Ur Specific [place] 1.019 (1.005-1.025) Urine Protein NEGATIVE (Negative) Urine Ketones NEGATIVE (NEGATIVE) Urine Blood NEGATIVE (0-5) Prasanth/ul Urine Nitrite NEGATIVE (NEGATIVE) Urine Bilirubin NEGATIVE (NEGATIVE) Urine Urobilinogen NEGATIVE (0-1) mg/dL Ur Leukocyte Esterase NEGATIVE (NEGATIVE) Urine WBC (Auto) 3-5 (0-5) /HPF Urine RBC (Auto) NONE (0-2) /HPF U Hyaline Cast (Auto) 26-50 (0-2) /LPF U Epithel Cells (Auto) NONE (FEW) /HPF Urine Bacteria (Auto) RARE (NEGATIVE) /HPF Urine Mucus (Auto) SLIGHT (NEGATIVE) /HPF Urine Culture Reflexed NO (NO) Urine Glucose NEGATIVE (NEGATIVE) mg/dL Salicylates (2-20) mg/dL Urine Opiates Level POSITIVE (NEGATIVE) Ur Methadone NEGATIVE (NEGATIVE) Acetaminophen (10-30) ug/ml Urine Barbiturates NEGATIVE (NEGATIVE) Ur Phencyclidine (PCP) NEGATIVE (NEGATIVE) Urine Amphetamine NEGATIVE (NEGATIVE) U Benzodiazepine Level POSITIVE (NEGATIVE) Urine Cocaine NEGATIVE (NEGATIVE) Urine Marijuana (THC) POSITIVE (NEGATIVE) Ethyl Alcohol (0-10) mg/dL RPR w/Rflx to Titer Ur Chlamydia DNA Probe (NEGATIVE) Urine GC DNA Probe (NEGATIVE) Hep Bs Antigen Hep Bs Antibody, Quant Hepatitis C Ab (EIA) HIV Ag/Ab Combo Qual HIV 1&2 Antibody Interp 05/14/19 05/15/19 05/15/19 Range/Units 15:22 05:15 05:15 WBC 9.1 (4.0-10.5) K/mm3 RBC 3.95 L (4.1-5.4) M/mm3 Hgb 11.5 L (12.0-16.0) gm/dl Hct 35.7 (35-47) % MCV 90.4 (78-100) fl MCH 29.1 (26-32) pg MCHC 32.2 (32-36) g/dl RDW 14.2 H (11.5-14.0) % Plt Count 308 (150-450) K/mm3 MPV 10.0 H (6-9.5) fl Gran % 70.3 H (36.0-66.0) % Eos # (Auto) 0.29 (0-0.5) Absolute Lymphs (auto) 1.70 (1.0-4.6) Absolute Monos (auto) 0.69 (0.0-1.3) Lymphocytes % 18.7 L (24.0-44.0) % Monocytes % 7.6 (0.0-12.0) % Eosinophils % 3.2 (0.00-5.0) % Basophils % 0.2 (0.0-0.4) % Absolute Granulocytes 6.37 (1.4-6.9) Basophils # 0.02 (0-0.4) pO2/FiO2 Ratio % VBG pH (7.32-7.42) VBG pCO2 at Pat Temp (42-55) mm/Hg VBG pO2 at Pat Temp (25-40) mm/Hg VBG HCO3 (22-28) meq/L VBG O2 Sat (Chaim) (95-100) VBG Base Excess (-2.0-2.0) VBG Hemoglobin VBG Carboxyhemoglobin (0.0-6.9) % T HGB POC Potassium (3.5-5.1) Sodium 141 (137-145) mmol/L Potassium 4.3 (3.5-5.1) mmol/L Chloride 110 H (98-107) mmol/L Carbon Dioxide 27 (22-30) mmol/L Anion Gap 8.6 (5-15) MEQ/L BUN 9 (7-17) mg/dL Creatinine 0.65 (0.52-1.04) mg/dL Estimated GFR > 60.0 ML/MIN Glucose 96 (74-106) mg/dL Calcium 8.3 L (8.4-10.2) mg/dL Total Bilirubin 0.30 (0.2-1.3) mg/dL AST 17 (14-36) U/L ALT 13 (0-35) U/L Alkaline Phosphatase 58 (38-126) U/L Serum Total Protein 6.0 L (6.3-8.2) g/dL Albumin 3.1 L (3.5-5.0) g/dL Serum , Qual (Negative) Urine Color (YELLOW) Urine Appearance (CLEAR) Urine pH (5-6) Ur Specific [place] (1.005-1.025) Urine Protein (Negative) Urine Ketones (NEGATIVE) Urine Blood (0-5) Prasanth/ul Urine Nitrite (NEGATIVE) Urine Bilirubin (NEGATIVE) Urine Urobilinogen (0-1) mg/dL Ur Leukocyte Esterase (NEGATIVE) Urine WBC (Auto) (0-5) /HPF Urine RBC (Auto) (0-2) /HPF U Hyaline Cast (Auto) (0-2) /LPF U Epithel Cells (Auto) (FEW) /HPF Urine Bacteria (Auto) (NEGATIVE) /HPF Urine Mucus (Auto) (NEGATIVE) /HPF Urine Culture Reflexed (NO) Urine Glucose (NEGATIVE) mg/dL Salicylates (2-20) mg/dL Urine Opiates Level (NEGATIVE) Ur Methadone (NEGATIVE) Acetaminophen (10-30) ug/ml Urine Barbiturates (NEGATIVE) Ur Phencyclidine (PCP) (NEGATIVE) Urine Amphetamine (NEGATIVE) U Benzodiazepine Level (NEGATIVE) Urine Cocaine (NEGATIVE) Urine Marijuana (THC) (NEGATIVE) Ethyl Alcohol (0-10) mg/dL RPR w/Rflx to Titer Pending Ur Chlamydia DNA Probe NEGATIVE (NEGATIVE) Urine GC DNA Probe NEGATIVE (NEGATIVE) Hep Bs Antigen Pending Hep Bs Antibody, Quant Pending Hepatitis C Ab (EIA) Pending HIV Ag/Ab Combo Qual Pending HIV 1&2 Antibody Interp Pending Microbiology 05/14/19 11:50 Blood Culture - Preliminary Blood NO GROWTH TO DATE 05/14/19 11:40 Blood Culture - Preliminary Blood NO GROWTH TO DATE - Radiology Impressions Radiology Exams & Impressions: Radiology Procedures Category Date Time Status CHEST 1 VIEW (PORTABLE) Stat Exams 05/14/19 10:55 Completed - Other Procedures and Tests Respiratory Therapy 05/14/19 12:20 Oxygen Nasal Cannula 3 lpm Assessment/Plan (1) Pneumonia Current Visit: Yes Status: Acute Qualifiers: Pneumonia type: aspiration pneumonia Aspiration pneumonia type: unspecified Laterality: right Lung location: upper lobe of lung Qualified Code(s): J69.0 - Pneumonitis due to inhalation of food and vomit Code(s): J18.9 - PNEUMONIA, UNSPECIFIED ORGANISM (2) Heroin overdose Current Visit: Yes Status: Acute Qualifiers: Encounter type: initial encounter Injury intent: accidental or unintentional Qualified Code(s): T40.1X1A - Poisoning by heroin, accidental ( unintentional), initial encounter Code(s): T40.1X1A - POISONING BY HEROIN, ACCIDENTAL (UNINTENTIONAL), INIT ENCNTR
[2019-05-15 09:19] VITALS: BP 104/78; PULSE 70; O2SAT 98
[2019-05-15] MEDS ORDERED: NORGESTIMATE ETHINYL ESTRADIOL PO SCH (10:00)
[2019-05-15] MEDS ORDERED: ROCEPHIN 1 Gm-D5w 50 ml Bag** 1 G/50 ML IVPB IV SCH (10:00)
[2019-05-15] MEDS ORDERED: NON-FORMULARY ITEM (Sertraline Hcl [Zoloft] 100 MG) PO SCH (10:00)
[2019-05-15] MEDS ORDERED: ZOLOFT 50 MG TABLET PO SCH (10:00)
[2019-05-16 03:40] LABS: Hepatitis B Sur Ag Screen Non Reactive (Non Reactive); Hepatitis B Surface Ab.Quant <3.50 mIU/mL (0.00-8.49); Hepatitis C Antibody by EIA Non Reactive (Non Reactive)
[2019-05-16 09:51] LABS: HIV Antigen/Antibody Combo Non Reactive (Non Reactive)
[2019-05-16 11:34] LABS: RPR Screen Non Reactive (Non Reactive)
== END 2019-05-15 09:09 | disposition home or self-care (01) ==
LOC: ED 09:30 → ICU 12:14
PROVIDERS: ADMIT General Practice; ATTEND General Practice
DX: J18.9 Pneumonia, unspecified organism (principal); T40.1X1A Poisoning by heroin, accidental (unintentional), initial encounter; Z79.899 Other long term (current) drug therapy
CPT/HCPCS: 36415; 71045; 80053; 80307; 81001; 81025; 82805; 85025; 86317; 86701; 86702; 86803; 87040; 87340; 87389; 87491; 87591; 90791; 93005; 94150; 94640; 94760; 94770; 96360; 96374; 96375; 99285; G0480; G0481; Q3014; 93268; 96361; 96365; J0456; J0696; J7609; A9270-GY; G0378